=== PATIENT | female | born 1945 | race Caucasian/White ===

== ENCOUNTER 2023-02-09 06:16 | Day surgery (SDC) | payer MEDICARE, OTHER ==
[2023-02-08 12:36] VITALS: BMI 19.5
[~2023-02-09 06:16] MED LIST: EPINEPHrine 0.3 MG in Ophthalmic Irrigation Solution 500 ML IRR SCH
[2023-02-09] MEDS ORDERED: Midazolam HCl 2 mg/2 ml Vial ONE (06:36)
[2023-02-09] MEDS ORDERED: fentaNYL 50 mcg/mL 1 mL Vial ONE (06:36)
[2023-02-09] MEDS ORDERED: PHENYLephrine 2.5% Ophth Soln 15 ml Bottle ONE (06:45)
[2023-02-09] MEDS ORDERED: Cyclopentolate 0.5% Opth Drops 15 ML BOT ONE (06:45)
[2023-02-09] MEDS ORDERED: Lidocaine 1% PF 5 ML VIAL ONE (08:12)
[2023-02-09] MEDS ORDERED: PROPOFOL 200 MG/20 ML VIAL ONE (08:12)
[2023-02-09] MEDS ORDERED: Triamcinolone 40 MG/ML VIAL ONE (08:12)
[2023-02-09] MEDS ORDERED: Bupivacaine 0.75% 10 ML VIAL ONE (08:12)
[2023-02-09] MEDS ORDERED: Lidocaine 4% PF 5 ML AMP ONE (08:12)
[2023-02-09] MEDS ORDERED: Maxitrol 0.1% Opth Oint 3.5 GM TUBE ONE (08:12)
[2023-02-09] MEDS ORDERED: CEFAZOLIN 1 GM VIAL ONE (08:12)
== END 2023-02-09 09:48 | disposition home or self-care (01) ==
LOC: SDC 06:16
PROVIDERS: ATTEND Ophthalmology Retina Specialist
PROC: 08T53ZZ Resection of Left Vitreous, Percutaneous Approach (ICD-10-PCS; principal; 2023-02-09)
PROC: 08U10JZ Supplement of Left Eye with Synthetic Substitute, Open Approach (ICD-10-PCS; 2023-02-09)
DX: H33.022 Retinal detachment with multiple breaks, left eye (principal); Z88.6 Allergy status to analgesic agent
CPT/HCPCS: 67025; J0171; J0690; J2250; J2704; J3010; J3301; J3490